=== PATIENT | male | born 1950 | race Caucasian/White ===

== ENCOUNTER 2021-10-29 11:58 | Outpatient (CLI) | payer MEDICARE, OTHER, SELFPAY ==
[2021-10-29 11:41] LABS: Abs Immature Grans 0.05 10^3/uL (0.0-0.06); Absolute Basophil Count 0.07 10^3/uL (0.0-0.2); Absolute Eosinophil Count 0.19 10^3/uL (0.0-0.7); Absolute Lymphocyte Count 1.51 10^3/uL (1.2-3.4); Absolute Neutrophil Count 4.04 10^3/uL (1.2-6.7); Eosinophils % 2.8; HCT 40.2 % (40.0-50.0); HGB 13.7 g/dL (13.5-17.5); Immature Grans % 0.7; Lymphocytes % 22.3; MCH 30.2 pg (27.0-33.0); MCHC 34.1 % (32.0-36.0); MCV 88.5 fL (80-95); MPV 9.3 fL (8.0-11.0); Monocytes % 13.3; Neutrophils % 59.9; Nucleated RBC 0 %; Platelet Count 241 10^3/uL (130-400); RBC 4.54 10^6/uL (4.36-5.78); RDW 12.7 % (11.8-14.1); RDW-SD 41.2 fL; WBC 6.76 10^3/uL (4.4-10.8)
[2021-10-29 11:58] LABS: ALT 63 U/L (16-63); AST 35 U/L (15-37); Alkaline Phosphatase 82 U/L (46-116); Amylase 35 U/L (25-115); Anion Gap 7.8 mmol/L (3-11); BUN 33 mg/dL (7-18); Bilirubin, Total 0.8 mg/dL (0.2-1.0); CO2 27.2 mmol/L (21.0-32.0); CREATININE 1.1 mg/dL (0.70-1.30); Calcium 9.2 mg/dL (8.5-10.1); Chloride 105 mmol/L (98-107); Glucose 109 mg/dL (74-106); Lipase 310 U/L (73-393); Potassium 4.5 mmol/L (3.5-5.1); Sodium 140 mmol/L (136-145); Total Protein 7.7 g/dL (6.4-8.2)
== END 2021-10-29 11:59 | disposition home or self-care (01) ==
LOC: LBO 12:00
PROVIDERS: PCP Nurse Practitioner Family; Visit Provider Nurse Practitioner Family
DX: R10.84 Generalized abdominal pain (principal)
CPT/HCPCS: 36415; 80053; 83690; 82150; 85025

== ENCOUNTER 2021-10-29 12:02 | Outpatient (REF) | payer OTHER, SELFPAY | END 2021-10-29 12:03 | disposition home or self-care (01) | LOC: NCHCN 12:02 | PROVIDERS: PCP Nurse Practitioner Family; Visit Provider Nurse Practitioner Family ==

== ENCOUNTER 2022-07-28 18:14 | Outpatient (REF) | payer MEDICARE, OTHER, SELFPAY ==
[2022-07-28 17:23] LABS: HCT 41.6 % (40.0-50.0); HGB 13.9 g/dL (13.5-17.5); MCHC 33.4 % (32.0-36.0); MCV 90 fL (80-95); MPV 10.1 fL (8.0-11.0); Platelet Count 244 10^3/uL (130-400); RBC 4.63 10^6/uL (4.36-5.78); RDW 12.8 % (11.8-14.1); RDW-SD 42.3 fL; WBC 7.04 10^3/uL (4.4-10.8)
[2022-07-28 17:50] LABS: Hemoglobin A1C 6.7 % (<5.7)
[2022-07-28 18:30] LABS: ALT 34 U/L (16-63); AST 27 U/L (15-37); Albumin 4.4 g/dL (3.4-5.0); Alkaline Phosphatase 75 U/L (46-116); BUN 24 mg/dL (7-18); Bilirubin, Total 0.6 mg/dL (0.2-1.0); Calcium 9.3 mg/dL (8.5-10.1); Calculated LDL 70 mg/dL (<100); Chloride 104 mmol/L (98-107); Cholesterol 142 mg/dL (<200); Estimated GFR 78.98 (mL/min/1.73m2); Glucose 140 mg/dL (74-106); HDL Cholesterol 41 mg/dL (40-60); Potassium 4.7 mmol/L (3.5-5.1); Sodium 139 mmol/L (136-145); TSH 2.94 uIU/mL (0.36-3.74); Total Protein 8.2 g/dL (6.4-8.2); Triglyceride 159 mg/dL (<150); Vitamin B12 553 pg/mL (193-986)
[2022-07-28 18:49] LABS: Creatine Kinase 166 U/L (39-308)
== END 2022-07-28 18:15 | disposition home or self-care (01) ==
LOC: NCHCN 18:14
PROVIDERS: Visit Provider Nurse Practitioner Family
DX: E78.2 Mixed hyperlipidemia (principal); E11.9 Type 2 diabetes mellitus without complications; I10 Essential (primary) hypertension; Z79.01 Long term (current) use of anticoagulants; R41.3 Other amnesia
CPT/HCPCS: 80053; 80061; 82550; 85027; 82607; 83036; 84443

== ENCOUNTER 2023-06-24 13:17 | Outpatient (REF) | payer MEDICARE, OTHER, SELFPAY ==
[2023-06-24 15:12] LABS: HCT 41.9 % (40.0-50.0); HGB 13.9 g/dL (13.5-17.5); MCH 30.2 pg (27.0-33.0); MCHC 33.2 % (32.0-36.0); MCV 91 fL (80-95); MPV 9.7 fL (8.0-11.0); Platelet Count 234 10^3/uL (130-400); RDW 12.5 % (11.8-14.1); RDW-SD 41.1 fL; WBC 6.47 10^3/uL (4.4-10.8)
[2023-06-24 15:21] LABS: Bacteria Rare HPF (Negative); C & S Indicated? C&S Done As Ordered; Casts Negative LPF (Negative); Crystals Negative HPF (Negative); Epithelial Cells Rare HPF (Negative); Mucus Negative (Negative); RBC 20-50 HPF (0-2)
[2023-06-24 15:28] LABS: ALT 34 U/L (16-63); AST 20 U/L (15-37); Albumin 4.3 g/dL (3.4-5.0); Alkaline Phosphatase 76 U/L (46-116); Anion Gap 8.4 mmol/L (3-11); BUN 21 mg/dL (7-18); Bilirubin, Total 0.8 mg/dL (0.2-1.0); CO2 29.6 mmol/L (21.0-32.0); Calcium 9.8 mg/dL (8.5-10.1); Chloride 104 mmol/L (98-107); Estimated GFR 78.49 (mL/min/1.73m2); Glucose 120 mg/dL (74-106); HDL Cholesterol 41 mg/dL (40-60); LDL CHOLESTEROL 80 mg/dL (<100); Potassium 4.9 mmol/L (3.5-5.1); Sodium 142 mmol/L (136-145); Total Protein 7.6 g/dL (6.4-8.2)
[2023-06-24 15:40] LABS: Creatine Kinase 161 U/L (39-308)
== END 2023-06-24 13:18 | disposition home or self-care (01) ==
LOC: NCHCN 13:17
PROVIDERS: PCP Nurse Practitioner Family; Visit Provider Nurse Practitioner Family
DX: I10 Essential (primary) hypertension (principal); R31.9 Hematuria, unspecified
CPT/HCPCS: 80053; 82550; 83721; 85027; 81015; 83718; 87086

== ENCOUNTER 2023-07-22 10:30 | Outpatient (REF) | payer MEDICARE, OTHER, SELFPAY ==
[2023-07-22 15:55] LABS: HCT 41.3 % (40.0-50.0); HGB 13.7 g/dL (13.5-17.5); MCH 29.8 pg (27.0-33.0); MCHC 33.2 % (32.0-36.0); MCV 90 fL (80-95); MPV 9.7 fL (8.0-11.0); Platelet Count 246 10^3/uL (130-400); RBC 4.59 10^6/uL (4.36-5.78); RDW 12.5 % (11.8-14.1); RDW-SD 40.9 fL; WBC 7.41 10^3/uL (4.4-10.8)
[2023-07-22 15:56] LABS: Bilirubin Negative (Negative); Blood Large (Negative); Clarity Clear (Clear); Glucose Negative (Negative); Ketones Negative (Negative); Leukocyte Esterase Negative (Negative); Nitrite Negative (Negative); Specific Gravity >= 1.030 (1.005-1.025); Urobilinogen 0.2 mg/dL (Up to 0.2); pH 5.5 (5-8)
[2023-07-22 16:05] LABS: Bacteria Rare HPF (Negative); C & S Indicated? C&S Done As Ordered; Casts Negative LPF (Negative); Crystals Negative HPF (Negative); Epithelial Cells Rare HPF (Negative); Mucus Trace (Negative); Other Cells Rare Transitional (Negative); RBC >50 HPF (0-2); WBC 0-2 HPF (0-5)
== END 2023-07-22 10:31 | disposition home or self-care (01) ==
LOC: NCHCN 10:30
PROVIDERS: PCP Nurse Practitioner Family; Visit Provider Nurse Practitioner Family
DX: R31.9 Hematuria, unspecified (principal)
CPT/HCPCS: 85027; 81003; 81015; 87086

== ENCOUNTER 2023-09-16 12:52 | Outpatient (REF) | payer MEDICARE, OTHER, SELFPAY ==
[2023-09-16 15:07] LABS: HCT 31.9 % (40.0-50.0); HGB 10.7 g/dL (13.5-17.5); MCH 30.3 pg (27.0-33.0); MCHC 33.5 % (32.0-36.0); MCV 90 fL (80-95); MPV 9.7 fL (8.0-11.0); Platelet Count 335 10^3/uL (130-400); RBC 3.53 10^6/uL (4.36-5.78); RDW-SD 42.4 fL; WBC 5.36 10^3/uL (4.4-10.8)
[2023-09-16 15:21] LABS: Bilirubin Negative (Negative); Blood Large (Negative); Clarity Cloudy (Clear); Glucose Negative (Negative); Ketones Trace mg/dL (Negative); Leukocyte Esterase Negative (Negative); Nitrite Negative (Negative); Urobilinogen 0.2 mg/dL (Up to 0.2)
[2023-09-16 15:25] LABS: Bacteria Few HPF (Negative); C & S Indicated? Yes; Casts Negative LPF (Negative); Crystals Negative HPF (Negative); Epithelial Cells Rare HPF (Negative); Mucus Moderate (Negative); RBC >50 HPF (0-2)
[2023-09-16 15:54] LABS: Anion Gap 10.7 mmol/L (3-11); BUN 34 mg/dL (7-18); CO2 25.3 mmol/L (21.0-32.0); CREATININE 1.2 mg/dL (0.70-1.30); Calcium 9.7 mg/dL (8.5-10.1); Chloride 106 mmol/L (98-107); Estimated GFR 63.07 (mL/min/1.73m2); Glucose 107 mg/dL (74-106); NT-proBNP 1347 pg/mL (<300); Potassium 4.9 mmol/L (3.5-5.1); Sodium 142 mmol/L (136-145); TSH 1.65 uIU/Ml (0.36-3.74)
== END 2023-09-16 12:53 | disposition home or self-care (01) ==
LOC: NCHCN 12:52
PROVIDERS: PCP Nurse Practitioner Family; Visit Provider Nurse Practitioner Family
DX: R06.09 Other forms of dyspnea (principal); R10.9 Unspecified abdominal pain; R79.89 Other specified abnormal findings of blood chemistry; R82.998 Other abnormal findings in urine
CPT/HCPCS: 80048; 85027; 81003; 81015; 83880; 84443; 87086

== ENCOUNTER 2023-10-14 16:57 | Outpatient (REF) | payer MEDICARE, OTHER, SELFPAY ==
[2023-10-14 20:31] LABS: HCT 29.5 % (40.0-50.0); HGB 9.5 g/dL (13.5-17.5); MCH 29.3 pg (27.0-33.0); MCHC 32.2 % (32.0-36.0); MCV 91 fL (80-95); MPV 10.3 fL (8.0-11.0); Platelet Count 307 10^3/uL (130-400); RBC 3.24 10^6/uL (4.36-5.78); RDW 13.2 % (11.8-14.1); RDW-SD 44.2 fL; WBC 9.37 10^3/uL (4.4-10.8)
== END 2023-10-14 16:58 | disposition home or self-care (01) ==
LOC: NCHCN 16:57
PROVIDERS: PCP Nurse Practitioner Family; Visit Provider Nurse Practitioner Family
DX: E11.9 Type 2 diabetes mellitus without complications (principal); R31.0 Gross hematuria
CPT/HCPCS: 85027; 83036

== ENCOUNTER 2023-11-05 17:03 | Outpatient (REF) | payer MEDICARE, OTHER, SELFPAY ==
[2023-11-05 16:04] LABS: HCT 29.6 % (40.0-50.0); MCHC 30.4 % (32.0-36.0); MCV 92 fL (80-95); MPV 9.7 fL (8.0-11.0); Platelet Count 345 10^3/uL (130-400); RBC 3.21 10^6/uL (4.36-5.78); RDW 13.9 % (11.8-14.1); RDW-SD 46.9 fL; WBC 6.89 10^3/uL (4.4-10.8)
== END 2023-11-05 17:04 | disposition home or self-care (01) ==
LOC: NCHCN 17:03
PROVIDERS: PCP Nurse Practitioner Family; Visit Provider Nurse Practitioner Family
DX: R31.0 Gross hematuria (principal)
CPT/HCPCS: 85027

== ENCOUNTER 2023-11-18 11:14 | Outpatient (REF) | payer MEDICARE, OTHER, SELFPAY ==
[2023-11-18 13:47] LABS: HCT 32.3 % (40.0-50.0); MCV 91 fL (80-95); MPV 10.2 fL (8.0-11.0); Platelet Count 243 10^3/uL (130-400); RBC 3.57 10^6/uL (4.36-5.78); RDW 14.2 % (11.8-14.1); RDW-SD 47.1 fL; WBC 6.29 10^3/uL (4.4-10.8)
[2023-11-18 13:59] LABS: Bacteria Few HPF (Negative); C & S Indicated? C&S Done As Ordered; Crystals Negative HPF (Negative); Epithelial Cells Rare HPF (Negative); Mucus Trace (Negative)
[2023-11-18 14:08] LABS: Iron 91 ug/dL (65-175)
[2023-11-18 14:46] LABS: Reticulocyte 1.7 % (0.5-2.4)
== END 2023-11-18 11:15 | disposition home or self-care (01) ==
LOC: NCHCN 11:14
PROVIDERS: PCP Nurse Practitioner Family; Visit Provider Nurse Practitioner Family
DX: R31.0 Gross hematuria (principal)
CPT/HCPCS: 85027; 81015; 83540; 85045; 87086

== ENCOUNTER 2023-12-30 14:33 | Outpatient (REF) | payer MEDICARE, OTHER, SELFPAY ==
[2023-12-30 22:00] LABS: Abs Immature Grans 0.02 10^3/uL (0.0-0.06); Absolute Basophil Count 0.06 10^3/uL (0.0-0.2); Absolute Eosinophil Count 0.38 10^3/uL (0.0-0.7); Absolute Lymphocyte Count 1.34 10^3/uL (1.2-3.4); Absolute Monocyte Count 0.69 10^3/uL (0.1-0.8); Absolute Neutrophil Count 4.44 10^3/uL (1.2-6.7); Basophils % 0.9 %; Eosinophils % 5.5 %; HCT 36.1 % (40.0-50.0); HGB 11.3 g/dL (13.5-17.5); Immature Grans % 0.3 %; Lymphocytes % 19.3 %; MCH 27.6 pg (27.0-33.0); MCHC 31.3 % (32.0-36.0); MCV 88 fL (80-95); MPV 10.7 fL (8.0-11.0); Platelet Count 238 10^3/uL (130-400); RDW 14.5 % (11.8-14.1); RDW-SD 46.7 fL; WBC 6.93 10^3/uL (4.4-10.8)
[2023-12-30 22:33] LABS: Ferritin 26 ng/mL (26-388)
[2023-12-30 22:45] LABS: Iron 46 ug/dL (65-175); Total Iron Binding Capacity 370 ug/dL (250-450); Transferrin Sat 12 % (20-55)
== END 2023-12-30 14:34 | disposition home or self-care (01) ==
LOC: NCHCN 14:33
PROVIDERS: PCP Nurse Practitioner Family; Visit Provider Physician Assistant Medical
DX: D64.9 Anemia, unspecified (principal)
CPT/HCPCS: 82728; 83540; 83550; 85025

== ENCOUNTER 2024-04-13 20:42 | Outpatient (REF) | payer MEDICARE, OTHER, SELFPAY ==
[2024-04-13 19:41] LABS: Abs Immature Grans 0.04 10^3/uL (0.0-0.06); Absolute Eosinophil Count 0.24 10^3/uL (0.0-0.7); Absolute Lymphocyte Count 1.85 10^3/uL (1.2-3.4); Absolute Monocyte Count 0.75 10^3/uL (0.1-0.8); Absolute Neutrophil Count 4.12 10^3/uL (1.2-6.7); Basophils % 1.4 %; Eosinophils % 3.4 %; HCT 39.9 % (40.0-50.0); HGB 12.9 g/dL (13.5-17.5); Immature Grans % 0.6 %; Lymphocytes % 26.1 %; MCHC 32.3 % (32.0-36.0); MCV 90 fL (80-95); Monocytes % 10.6 %; Neutrophils % 57.9 %; Platelet Count 274 10^3/uL (130-400); RBC 4.45 10^6/uL (4.36-5.78); RDW 15.8 % (11.8-14.1); RDW-SD 51.9 fL
[2024-04-13 20:02] LABS: ALT 53 U/L (16-63); AST 24 U/L (15-37); Albumin 4.2 g/dL (3.4-5.0); Alkaline Phosphatase 82 U/L (46-116); Bilirubin, Direct 0.2 mg/dL (0.0-0.2); Bilirubin, Total 0.53 mg/dL (0.2-1.0); Calculated LDL 53 mg/dL (<100); Cholesterol 136 mg/dL (<200); Ferritin 63 ng/mL (26-388); HDL Cholesterol 42 mg/dL (40-60); Total Protein 7.9 g/dL (6.4-8.2); Triglyceride 207 mg/dL (<150)
== END 2024-04-13 20:43 | disposition home or self-care (01) ==
LOC: NCHCN 20:42
PROVIDERS: PCP Nurse Practitioner Family; Visit Provider Physician Assistant Medical
DX: E11.9 Type 2 diabetes mellitus without complications (principal)
CPT/HCPCS: 80061; 80076; 82728; 83036; 85025

== ENCOUNTER 2025-07-11 09:08 | Outpatient (REF) | payer MEDICARE, OTHER, SELFPAY ==
[2025-07-11 15:32] LABS: HCT 41.2 % (40.0-50.0); HGB 13.5 g/dL (13.5-17.5); MCH 30.0 pg (27.0-33.0); MCHC 32.8 % (32.0-36.0); MCV 92 fL (80-95); MPV 10.2 fL (8.0-11.0); Platelet Count 233 10^3/uL (130-400); RBC 4.50 10^6/uL (4.36-5.78); RDW 12.9 % (11.8-14.1); RDW-SD 42.7 fL; WBC 6.31 10^3/uL (4.4-10.8)
[2025-07-11 15:44] LABS: Hemoglobin A1C 7.3 % (<5.7)
[2025-07-11 15:47] LABS: Iron 68 ug/dL (65-175)
[2025-07-11 15:51] LABS: Magnesium 2.0 mg/dL (1.6-2.6)
[2025-07-11 16:03] LABS: ALT 27 U/L (10-49); AST 29 U/L (<34); Albumin 4.7 g/dL (3.2-5.0); Alkaline Phosphatase 80 U/L (46-116); Anion Gap 7.9 mmol/L (3-11); BUN 22 mg/dL (9-23); Bilirubin, Total 0.8 mg/dL (0.2-1.2); CO2 30.1 mmol/L (20.0-31.0); Calcium 9.7 mg/dL (8.3-10.6); Chloride 107 mmol/L (98-107); Cholesterol 139 mg/dL (<200); Ferritin 64 ng/mL (11-307); Glucose 139 mg/dL (74-106); HDL Cholesterol 35 mg/dL (>or=40); Potassium 4.8 mmol/L (3.5-5.1); Sodium 145 mmol/L (136-145); Total Protein 7.2 g/dL (5.7-8.2)
== END 2025-07-11 09:09 | disposition home or self-care (01) ==
LOC: NCHCN 09:08
PROVIDERS: Visit Provider Physician Assistant Medical
DX: D64.9 Anemia, unspecified (principal); I48.91 Unspecified atrial fibrillation; E11.9 Type 2 diabetes mellitus without complications
CPT/HCPCS: 80053; 80061; 85027; 82728; 83036; 83540; 83735